=== PATIENT | female | born 1985 | race Caucasian/White ===

== ENCOUNTER 2023-02-15 12:42 | Outpatient (CLI) | payer OTHER, SELFPAY ==
--- NOTE | ~2023-02-15 | MM_ITS ---
EXAMINATION: MM diagnostic rosalio LT w teodoro HISTORY: Left breast lump, upper inner quadrant according to referring physician information, upper o uter quadrant according to medical imaging technologist TECHNIQUE full field and spot ML, MLO and CC 3-D tomosynthesis images of the left breast were perform ed and synthetic 2-D images were generated. CAD analysis was submitted and interpreted. High resoluti on upper inner and upper outer quadrant left breast ultrasound examination was performed. COMPARISON: None BREAST PARENCHYMAL COMPOSITION: There are scattered areas of fibroglandular density. FINDINGS: MAMMOGRAPHIC FINDINGS: No suspicious mass or architectural distortion, malignant calcification, skin thickening or retractio n is detected. ULTRASOUND: No suspicious mass or shadowing, cyst or other significant finding is noted in the upper inner or upp er quadrants of the left breast. IMPRESSION: 1. No mammographic or sonographic evidence of malignancy 2. Routine annual mammographic screening beginning at age 40 is recommended unless there are symptoms or physical findings prior to that BI-RADS Category 1: Negative Reviewed, dictated and finalized at location [facility]. IMPRESSION: 1. No mammographic or sonographic evidence of malignancy 2. Routine annual mammographic screening beginning at age 40 is recommended unl ess there are symptoms or physical findings prior to that BI-RADS Category 1: Negative
--- NOTE | ~2023-02-15 | US_ITS ---
US breast LT limited DATE: 02/15/2023 13:57 INDICATION: Left breast lump TECHNIQUE: High-resolution ultrasound imaging of upper inner and upper outer quadrants of left breast COMPARISON: 02/15/2023 diagnostic left mammogram FINDINGS: No suspicious mass or shadowing, cyst or other specific sonographic abnormalities detected. IMPRESSION: BI-RADS Category 1: Negative Reviewed, dictated and finalized at [facility]. Reviewed, dictated and finalized at location A.
== END 2023-02-15 12:43 | disposition home or self-care (01) ==
LOC: ANHIMG 12:45
PROVIDERS: PCP Pediatrics; Visit Provider Nurse Practitioner Women's Health
DX: N63.22 Unspecified lump in the left breast, upper inner quadrant (principal)
CPT/HCPCS: 76642; 77061; 77065; G0279